=== PATIENT | female | born 1955 | race Hispanic/Latino ===

== ENCOUNTER 2023-10-13 18:23 | Emergency (ER) | payer OTHER ==
[~2023-10-13] VITALS: Ht 152.4 cm; Wt 74.8 kg
[2023-10-13 19:06] LABS: COVID19 (SARS ANTIGEN RAPID) PRESUMPTIVE NEGATIVE (NEGATIVE); INFLUENZA TYPE A Negative For Type A (NEGATIVE); INFLUENZA TYPE B Negative For Type B (NEGATIVE)
[2023-10-13] MEDS ORDERED: MOLN200C PO (19:24)
[2023-10-13 19:31] VITALS: BP 149/76; PULSE 72; RESP 14; TEMP 99; O2SAT 97
== END 2023-10-13 19:34 | disposition home or self-care (01) ==
LOC: EDH 18:23
DX: U07.1 COVID-19 (principal); E78.00 Pure hypercholesterolemia, unspecified; I10 Essential (primary) hypertension; Z98.890 Other specified postprocedural states
CPT/HCPCS: 87426; 87804

== ENCOUNTER → 2024-08-11 | Outpatient (CLI) | payer OTHER ==
[~2024-08-11] MED LIST: MOLN200C PO
== END | disposition home or self-care (01) ==
LOC: RAH 12:24
PROVIDERS: ATTEND Family Medicine
DX: Z12.31 Encounter for screening mammogram for malignant neoplasm of breast (principal)
CPT/HCPCS: 77067